=== PATIENT | male | born 1955 | race Caucasian/White ===

== ENCOUNTER 2017-06-18 22:22 | Emergency (ER) | payer MEDICAID ==
[2017-06-18 22:54] LABS: % EOSINOPHILS 4.8 % (0.0-5.0); % LYMPHOCYTES 14.5 % (20.0-50.0); % MONOCYTES 6.2 % (2.0-10.0); % NEUTROPHILS 74.5 % (40.0-80.0); HEMATOCRIT 32.6 % (39.0-49.0); HEMOGLOBIN 11.2 gm/dL (13.2-17.3); MEAN CELL VOLUME 87.4 fl (80-99); MEAN CORPUSCULAR HGB CONC 34.3 pg (28.0-36.0); MEAN PLATELET VOLUME 7.1 fl; PLATELET COUNT 200 Th/cmm (150-400); RED BLOOD COUNT 3.73 Mil/cmm (4.30-5.70); RED CELL DISTRIBUTION WIDTH 13.5 % (11.5-20.0); WHITE BLOOD COUNT 8.1 Th/cmm (4.8-10.8)
[2017-06-18 23:09] LABS: ALB/GLOB RATIO 1.3 (1.0-1.8); ANION GAP 15.1 (7.0-16.0); BILIRUBIN,TOTAL 0.3 mg/dL (0.3-1.0); BUN/CREATININE RATIO 14.8; CALCIUM SERUM 8.8 mg/dL (8.6-10.3); CREATININE - SERUM 2.5 mg/dL (0.7-1.3); POTASSIUM SERUM 4.1 mEq/L (3.5-5.1)
[2017-06-18 23:10] LABS: CHOLESTEROL 110 mg/dL (<200); TRIGLYCERIDES 149 mg/dL (<150)
--- NOTE | 2017-06-18 23:10 | ED Physician Chart ---
Chief Complaint/HPI - Patient Information Date Seen:: 06/18/17 Time Seen:: 22:34 Chief Complaint:: ALLERGIC RASH History of Present Illness:: THIS IS A CHRONICALLY ILL WHEELCHAIR BOUND 61 YO MALE WITH CONCERN ABOUT AN ALLERGIC RASH AFTER HE CAME IN CONTACT WITH SOME BUSHES TWO DAYS AGO. HE STATES THAT HE HAS BOTH ARTHRITIS AND CHRONIC MRSA INFECTIONS FOR YEARS. THE IS OVER HIS ENTIRE BODY AND IS RED AND RAISE UTICARIA. Allergies:: Allergies Allergy/AdvReac Type Severity Reaction Status Date / Time No Known Allergies Allergy Verified 06/18/17 22:38 Vitals:: Vital Signs - 8 hr 06/18/17 22:30 Temp 98.1 F HR 102 RR 20 BP 94/53 O2 Sat % 96 Historian:: Patient Review:: Nurse's Note Reviewed Review of Systems - Review of Systems General/Constitutional: No fever, No chills, No weight loss, No weakness, No diaphoresis, No edema, No loss of appetite Skin: Skin lesions, Rash (SKIN LESIONS OVER THE BODY AND UTICARIAL RASH OVER THE BODY.), No rash, No bruising Head: No headache, No light-headedness Eyes: No loss of vision, No pain, No diplopia ENT: No earache, No nasal drainage, No sore throat, No tinnitus Neck: No neck pain, No swelling, No thyromegaly, No stiffness, No mass noted Cardio Vascular: No chest pain, No palpitations, No PND, No orthopnea, No edema Pulmonary: No SOB, No cough, No sputum, No wheezing GI: No nausea, No vomiting, No diarrhea, No pain, No melena, No hematochezia, No constipation, No hematemesis G/U: No dysuria, No frequency, No hematuria Musculoskeletal: No bone or joint pain, No back pain, No muscle pain Endocrine: No polyuria, No polydipsia Psychiatric: No prior psych history, No depression, No anxiety, No suicidal ideation Hematopoietic: No bruising, No lymphadenopathy Allergic/Immuno: No urticaria, No angioedema Neurological: No syncope, No focal symptoms, No weakness, No paresthesia, No headache, No seizure, No dizziness, No confusion, No vertigo Past Medical History - Past Medical History Obtainable: Yes Past Medical History: HTN, Arthritis, Cataract Family History: Cancer Social History: Non Smoker, No Alcohol, No Drug Use Surgical History: None Psychiatricy History: None Medication: Reviewed Family Medical History - Family Member Mother History Unknown: Yes Physical Exam - Physical Examination General/Constitutional: Awake, Well-developed, well-nourished, Alert, No distress, GCS 15, Non-toxic appearing, Ambulatory Head: Atraumatic Eyes: Lids, conjuctiva normal, PERRL, EOMI Skin: No ecchymosis, Well hydrated, No lymphadenopathy Other Skin comments:: THERE ARE PATCHES OF UTICARIA OVER THE ENTIRE BODY WITH MULTIPLE AREA OF LARGE FATTY TUMORS OVER BOTH UPPER EXTREMITIES. ENMT: External ears, nose nl, Nasal exam nl, Lips, teeth, gums nl Neck: Nontender, Full ROM w/o pain, No JVD, No nuchal rigidity, No bruit, No mass, No stridor Respiratory: Nl effort/Exclusion, Clear to Auscultation, No Wheeze/Rhonchi/Rales Cardio Vascular: RRR, No murmur, gallop, rubs, NL S1 S2 GI: No tenderness/rebounding/guarding, No organomegaly, No hernia, Normal BS's, Nondistended, No mass/bruits, No McBurney tenderness : No CVA tenderness Extremities: No tenderness or effusion, Full ROM, normal strength in all extremities, No edema Other Extremities comments:: THE PATIENT HAS SIGNIFICANT DEFORMITY OF BOTH HANDS FROM ARTHRITIS Neuro/Psych: Alert/oriented, DTR's symmetric, Normal sensory exam, Normal motor strength, Judgement/insight normal, Mood normal, Normal gait, No focal deficits Misc: normal gait, Normal back, No paraspinal tenderness Labs/Radiology/EKG Results - Lab Results Results: Laboratory Tests 06/18/17 22:45 WBC 8.1 RBC 3.73 L Hgb 11.2 L Hct 32.6 L MCV 87.4 MCH 30.0 MCHC Differential 34.3 RDW 13.5 Plt Count 200 MPV 7.1 Neutrophils % 74.5 Lymphocytes % 14.5 L Monocytes % 6.2 Eosinophils % 4.8 Basophils % 0.0 - Radiology Results Results: CHEST X-RAY = NAD - EKG Interpretations EKG Time:: 22:52 Rate & Rhythm: RATE =89 NSR [place]: RIGHT AXIS Assessment - Assessment General Assessment: ALLERGIC UTICARIA ED Septic Shock - . Is Septic Shock (SBP<90, OR Lactate>4 mmol\L) present?: No - <6hrs of presentation: Vital Signs: Vital Signs - 8 hr 06/18/17 22:30 Temp 98.1 F HR 102 RR 20 BP 94/53 O2 Sat % 96 Reassessment (Disposition) - Reassessment Reassessment Condition:: Improved - Diagnosis Diagnosis:: ALLERGIC UTICARIA - Aftercare/Follow up Instructions Aftercare/Follow-Up Instructions:: Counseled pt regarding lab results/diagnosis & need follow up, Refer to Discharge Instructions, Counseled pt & family regarding lab results/diagnosis & need follow up - Patient Disposition Discharge/Transfer:: Home Condition at Disposition:: Improved ED Discharge Plan - Patient Disposition Admit/Discharge/Transfer: PT DISCHARGED HOME Condition at Disposition: Improved
[2017-06-18 23:12] LABS: INR 1.03 (0.5-1.4); PROTHROMBIN TIME (TEST) 10.7 SECONDS (9.5-11.5)
[2017-06-18 23:23] LABS: URINE BILIRUBIN NEGATIVE (NEGATIVE); URINE BLOOD NEGATIVE (NEGATIVE); URINE GLUCOSE (UA) NEGATIVE (NEGATIVE); URINE KETONE NEGATIVE (NEGATIVE); URINE PH 5.5 (4.6 - 8.0); URINE PROTEIN TRACE mg/dL (NEGATIVE); URINE UROBILINOGEN 0.2 E.U./dL (0.2 - 1.0)
[2017-06-18 23:29] LABS: URINE BACTERIA MANY /hpf (NONE SEEN); URINE COLOR YELLOW; URINE EPITHELIAL CELLS FEW /lpf (FEW); URINE RBC 0-2 /hpf (0-5)
[2017-06-18 23:30] LABS: URINE WBC 50-100 /hpf (0-5)
--- NOTE | 2017-06-19 08:43 | Diagnostic Imaging Report ---
CHEST X-RAY: AP view INDICATION: Chest pain COMPARISON: None FINDINGS: The patient is slightly rotated. There is prominence of the right paratracheal soft tissues. No focal consolidation or effusions. Left basal subsegmental atelectasis versus scarring is noted. Heart size is normal. Osseous structures are intact. IMPRESSION: Left basal subsegmental atelectasis versus scarring. No focal consolidation identified. Prominence of the right paratracheal soft tissues likely related to body habitus also likely accentuated by slight rotation. Other etiologies such as lymphadenopathy would be considered less likely. If indicated follow up CT chest would provide for additional detail and assessment.
== END 2017-06-18 23:50 | disposition home or self-care (01) ==
LOC: ER 22:22
DX: L50.0 Allergic urticaria (principal); I10 Essential (primary) hypertension; N39.0 Urinary tract infection, site not specified; Z88.8 Allergy status to other drugs, medicaments and biological substances
CPT/HCPCS: 99285; 96372 ×2; 93005; 71010; 84484; 36415; 84443; 86592; 85025; 85610; 85730; 87086; 81001; 80053; 80061; J0696; J2930

== ENCOUNTER 2017-06-22 00:08 | Emergency (ER) | payer MEDICAID ==
--- NOTE | 2017-06-22 00:53 | ED Physician Chart ---
Chief Complaint/HPI - Patient Information Date Seen:: 06/22/17 Time Seen:: 00:30 Chief Complaint:: pruritic rash History of Present Illness:: Patient's had a diffuse pruritic rash for 2 days. He was seen here 2 days ago and diagnosed with a urinary tract infection. He was prescribed prednisone Zithromax and Cipro. Previously the patient was on lisinopril for high blood pressure and [place] for pain. Allergies:: Allergies Allergy/AdvReac Type Severity Reaction Status Date / Time ciprofloxacin [From Cipro] Allergy Verified 06/22/17 00:30 Vitals:: Vital Signs - 8 hr 06/22/17 00:15 Temp 97.9 F HR 85 RR 20 BP 131/85 O2 Sat % 98 Historian:: Patient, Family Member Review:: Nurse's Note Reviewed Review of Systems - Review of Systems General/Constitutional: No fever, No chills Skin: Rash Head: No headache Eyes: No loss of vision ENT: No earache Neck: No neck pain Cardio Vascular: No chest pain, No palpitations Pulmonary: No SOB GI: No nausea, No vomiting G/U: No dysuria Musculoskeletal: No bone or joint pain, No back pain, No muscle pain Psychiatric: No prior psych history Hematopoietic: No bruising, No lymphadenopathy Allergic/Immuno: No urticaria Neurological: No syncope Past Medical History - Past Medical History Past Medical History: HTN, Other (rheumatoid arthritis) Family History: HTN Social History: Non Smoker, Alcohol Surgical History: other (nephrectomy for renal carcinoma; hernia repair; meniscus; tonsillectomy; enucleation right eye) Psychiatricy History: None Medication: Reviewed Family Medical History - Family Member Mother History Unknown: Yes Physical Exam - Physical Examination General/Constitutional: Well-developed, well-nourished, Alert Head: Atraumatic Other Skin comments:: Large blotches of erythema on the anterior torso; slight maculopapular rash on the upper extremities ENMT: External ears, nose nl, TM canals nl, Nasal exam nl, Lips, teeth, gums nl , Oropharynx nl, Tonsils nl Neck: No nuchal rigidity Respiratory: Nl effort/Exclusion, Clear to Auscultation Cardio Vascular: RRR, No murmur, gallop, rubs, NL S1 S2 GI: No tenderness/rebounding/guarding, No organomegaly, No hernia : No CVA tenderness Extremities: No tenderness or effusion ED Septic Shock - . Is Septic Shock (SBP<90, OR Lactate>4 mmol\L) present?: No - <6hrs of presentation: Vital Signs: Vital Signs - 8 hr 06/22/17 00:15 Temp 97.9 F HR 85 RR 20 BP 131/85 O2 Sat % 98 Reassessment (Disposition) - Reassessment Reassessment:: Large blotches of erythema look like a drug reaction Reassessment Condition:: Unchanged - Diagnosis Diagnosis:: Drug reaction; rheumatoid arthritis; renal insufficiency; urinary tract infection - Aftercare/Follow up Instructions Aftercare/Follow-Up Instructions:: Refer to Discharge Instructions Medication Prescribed:: Conditions for Keflex 500 mg 4 times a day 10 days and Atarax 25 mg #30 to take 1 4 times a day as necessary for itching - Patient Disposition Discharge/Transfer:: Home Condition at Disposition:: Stable, Unchanged
== END 2017-06-22 01:30 | disposition home or self-care (01) ==
LOC: ER 00:08
DX: T50.905A Adverse effect of unspecified drugs, medicaments and biological substances, initial encounter (principal); N28.9 Disorder of kidney and ureter, unspecified; I10 Essential (primary) hypertension; M06.9 Rheumatoid arthritis, unspecified; N39.0 Urinary tract infection, site not specified; Y92.89 Other specified places as the place of occurrence of the external cause
CPT/HCPCS: Z7502; Z7610